=== PATIENT | female | born 1935 | race Caucasian/White ===

== ENCOUNTER 2021-01-18 01:36 | Inpatient (IN) | payer MEDICARE, BC ==
[~2021-01-18] VITALS: Ht 162.6 cm; Wt 58.7 kg
[2021-01-18] MEDS ORDERED: GABA-532 PO (02:08)
[2021-01-18] MEDS ORDERED: LOSA50TA39 PO (02:08)
[2021-01-18] MEDS ORDERED: ONDA4TAB5 PO (02:08)
[2021-01-18] MEDS ORDERED: atorvastatin PO (02:08)
[2021-01-18] MEDS ORDERED: QUET25TA PO ×2 (02:08)
[2021-01-18] MEDS ORDERED: metoprolol PO (02:08)
[2021-01-18] MEDS ORDERED: ASPI81TA31 PO (02:08)
[2021-01-18] MEDS ORDERED: POLY17PO4 PO (02:08)
[2021-01-18] MEDS ORDERED: ACET325T53 PO (02:08)
[2021-01-18] MEDS ORDERED: ALBU6.7H9 IH (02:08)
[2021-01-18] MEDS ORDERED: LEVO125T8 PO (02:08)
[2021-01-18] MEDS ORDERED: CLONIDINE HCL 0.1 MG TABLET PO ONE (02:15)
[2021-01-18 02:47] LABS: HEMATOCRIT 37.5 % (31.2-41.9); MEAN CORPUSCULAR VOLUME 91.2 fL (75.5-95.3); PLATELET COUNT (AUTO) 318 K/uL (179-408)
[2021-01-18 02:55] LABS: POTASSIUM 4.1 mmol/L (3.5-5.1)
[2021-01-18 03:02] LABS: BILIRUBIN,DIRECT 0.1 mg/dL (0.0-0.2); BILIRUBIN,TOTAL 0.2 mg/dL (0.2-1.0); TOTAL PROTEIN, SERUM 7.2 g/dL (6.4-8.2)
[2021-01-18] MEDS ORDERED: CLONIDINE HCL 0.1 MG TABLET ONE (03:04)
[2021-01-18 03:08] LABS: THYROID STIMULATING HORMONE 3.833 mIU/mL (0.358-3.740)
[2021-01-18 03:25] LABS: MAGNESIUM 1.8 mg/dL (1.8-2.4)
--- NOTE | 2021-01-18 03:38 | NUR ---
Paged Epic panel nurse practitioner adult. Waiting for Cris Hernandez LICENSED PHARMACIST to call back.
[2021-01-18] MEDS ORDERED: ONDANSETRON 4 MG/2 ML VIAL IV PRN (03:45)
[2021-01-18] MEDS ORDERED: ACETAMINOPHEN 325 MG TABLET PO PRN (03:45)
[2021-01-18] MEDS ORDERED: ENOXAPARIN SODIUM 60 MG/0.6 ML DISP.SYRIN SQ ONE ×2 (03:45→03:47)
[2021-01-18] MEDS ORDERED: MAG HYDROX/AL HYDROX/SIMETH 30 ML LIQUID UDC PO PRN ×2 (03:45→16:45)
[2021-01-18] MEDS ORDERED: NITROGLYCERIN 0.4 MG/TAB BOTTLE SL PRN (03:45)
[2021-01-18] MEDS ORDERED: ASPIRIN 81 MG TAB.CHEW PO ONE (03:45)
[2021-01-18] MEDS ORDERED: NITROGLYCERIN OINT 1 GM PACKET TP ONE ×2 (03:45→03:49)
[2021-01-18] MEDS ORDERED: DOCUSATE SODIUM 100 MG CAPSULE PO PRN (03:45)
[2021-01-18] MEDS ORDERED: ASPIRIN 81 MG TAB.CHEW ONE (03:46)
--- NOTE | 2021-01-18 03:50 | NUR ---
Dr Mata spoke to Cris Hernandez NP supervisor dimension warehouse for [facility] group, who accept patient to Tele inpatient.
--- NOTE | 2021-01-18 03:58 | NUR ---
After EDMD Dr. Mata reviewed 12 lead EKG and saw trop level of 0.46, he ordered 2 baby asprin, 60mg of lovenox SQ and 2in of nitro paste. After removing items from omnicell, pt refused medication. Dr. Mata notified regarding pt refusal of meds. He was ok with the refusal and said it was her perogative to refuse the medication.
[2021-01-18] MEDS ORDERED: ACETAMINOPHEN 325 MG TABLET-SA PATIENTS-PAIN ONLY PO PRN (04:00)
[2021-01-18 04:06] LABS: *BILIRUBIN,URIN NEGATIVE (NEGATIVE); *BLOOD, URINE NEGATIVE (NEGATIVE); *CLARITY,URINE CLEAR (CLEAR); *COLOR,URINE YELLOW (YELLOW); *KETONES,URINE NEGATIVE (NEGATIVE); *UROBILINOGEN,URINE 0.2 E.U./dl (NORMAL); LEUKOCYTE ESTERASE ,URINE TRACE (NEGATIVE); NITRITE, URINE NEGATIVE (NEGATIVE); UGLUCOSE 2+ (NEGATIVE)
[2021-01-18 04:11] LABS: BACTERIA,URINE FEW /HPF (NONE SEEN); RBC,URINE 0-3 /HPF (0-3); SQUAMOUS EPITHELIAL CELL,UR FEW /HPF (NONE SEEN)
--- NOTE | 2021-01-18 05:30 | NUR ---
Pt's bilat nastriles swabbed for covid using aseptic technique. Pt tolerated well.
--- NOTE | 2021-01-18 07:09 | NUR ---
ADMITTED AN 85 Y.0. FEMALE WITH ADMITTING DX OF CP ALERT AND VERBALLY RESPONSIVE, KNOWS WHERE SHE CAME FROM BUT DENIES ASSAULTING STAFF AND SECLUDING SELF. ROUTINE ADMISSION ASSESSMENT INITIATED, REFUSED TELEMETRY DR NEUMANN IN AND MADE AWARE. CONTINUE 1:1 SITTER AT BEDSIDE
--- NOTE | 2021-01-18 07:15 | NUR ---
Pt transported to room 306 via gurney without incident. Pt walked over to bed and stopped by the bathroom to void. Pt was dressed into tele gown, placed on monitor and in bed in pos of comfort. Pt has great color, temp and appearance. No complaints of pain, nausea, discomfort or distress of any kind.
[2021-01-18 08:15] VITALS: BP 125/45
[2021-01-18] MEDS: GABAPENTIN 100 MG CAPSULE PO SCH ×3 (08:51→16:23)
[2021-01-18] MEDS: ENOXAPARIN SODIUM 60 MG/0.6 ML DISP.SYRIN SQ SCH ×3 (08:55→20:40)
[2021-01-18] MEDS: LEVOTHYROXINE SODIUM 125 MCG TABLET PO SCH (08:57)
[2021-01-18] MEDS ORDERED: METOPROLOL SUCCINATE XL 25 MG TAB.SR.24H PO SCH (09:00)
[2021-01-18] MEDS ORDERED: LOSARTAN POTASSIUM 50 MG TABLET PO SCH (09:00)
[2021-01-18] MEDS ORDERED: ASPIRIN 81 MG TAB.CHEW PO SCH (09:00)
[2021-01-18] MEDS ORDERED: ENOXAPARIN SODIUM 40 MG/0.4 ML DISP.SYRIN SQ SCH (09:00)
--- NOTE | 2021-01-18 09:45 | NUR ---
SEEN BY DR BENITES WITH DISCHARGE ORDERS Addendum: 01/18/21 at 1256 by LUPE DELATORRE RN ERROR
--- NOTE | 2021-01-18 09:50 | NUR ---
patient refused echo cardiogram at bedside
--- NOTE | 2021-01-18 10:51 | NUR ---
DISCHARGED HOME STABLE ACCOMPANIED BY WITH O2 FOR HOME USE Addendum: 01/18/21 at 1053 by LUPE DELATORRE RN ERROR
--- NOTE | 2021-01-18 12:39 | NUR ---
DR GREENE NOTIFIED FOR PSYCH CONSULT RE: DANGER TO SELF/GRAVELY DISABLED
[2021-01-18] MEDS: QUETIAPINE FUMARATE 25 MG TABLET PO SCH ×2 (14:11→20:39)
--- NOTE | 2021-01-18 14:12 | NUR ---
SEEN BY DR LYNNE FOR PSYCH EVAL PLACED PATIENT ON 5250=14 DAY HOLD. PATIENT REMAINS CALM, TALKING MEDICATION ORDERED, CONTINUE 1:1 SITTER PER PROTOCOL
[2021-01-18] MEDS ORDERED: MAG30ORA PO (15:38)
[2021-01-18] MEDS ORDERED: ATOR40TA PO (15:38)
[2021-01-18] MEDS ORDERED: METO25TA6 PO (15:38)
[2021-01-18] MEDS ORDERED: METF-442 PO (15:38)
[2021-01-18] MEDS ORDERED: IBUP-1953 PO (15:38)
[2021-01-18] MEDS ORDERED: LORA-258 PO (15:38)
[2021-01-18] MEDS ORDERED: ALBUTEROL SULFATE 2.5 MG/3 ML NEBU NEB PRN (16:45)
[2021-01-18] MEDS ORDERED: ALBUTEROL SULFATE 8 GM HFA.AER.AD IH PRN (16:45)
[2021-01-18] MEDS ORDERED: MIRALAX 17 GM POWD.PACK PO PRN (16:45)
[2021-01-18] MEDS ORDERED: LORAZEPAM 0.5 MG TABLET PO PRN (16:45)
[2021-01-18] MEDS ORDERED: IBUPROFEN 400 MG TABLET PO PRN (16:45)
[2021-01-18] MEDS ORDERED: METOPROLOL TARTRATE 25 MG TABLET PO SCH (17:00)
[2021-01-18 17:42] VITALS: BP 131/42
[2021-01-18] MEDS ORDERED: Medication Not On Formulary EA (Metformin Hcl 1,000 MG) PO SCH (18:00)
[2021-01-18] MEDS ORDERED: METFORMIN HCL 500 MG TABLET PO SCH (18:00)
--- NOTE | 2021-01-18 18:45 | NUR ---
PATIENT AGAIN REFUSED BLOOD DRAWING MD AWARE. PATIENT BECAME AGITATED WHEN STAFF TRIED TO EXPLAIN THE IMPORTANT OF TAKING BLOOD
[2021-01-18 20:00] VITALS: BP 126/42
--- NOTE | 2021-01-18 20:45 | NUR ---
Received pt standing by window inside her room, 1:1 sitter at bedside. She is on 14-day hold started today at 1400H. No respiratory distress noted, denies pain and discomfort. Pt refused all 2100H meds, stating she doesn't need them. Explained risks and benefits, pt still refused. Will continue to monitor.
[2021-01-18] MEDS ORDERED: CEphaleXIN 500 MG CAPSULE PO SCH (21:00)
[2021-01-18] MEDS ORDERED: SIMVASTATIN 10 MG TABLET PO SCH (21:00)
[2021-01-19 04:00] VITALS: BP 136/51
[2021-01-19] MEDS: LEVOTHYROXINE SODIUM 125 MCG TABLET PO SCH (06:17)
--- NOTE | 2021-01-19 06:18 | NUR ---
Pt did not sleep at all, walks around room then goes back to lie down on bed. She is ambulatory and continent. Denies pain and discomfort at this time. Levothyroxine PO taken and tolerated well. Tried to go out of room once and wanted to use another bathroom. Pt redirected and went back to bed. Report given to MHU SELAM Guillen.
--- NOTE | 2021-01-19 07:05 | NUR ---
At 0645H, Pt transferred to MHU via wheelchair accompanied by RN and sitter. Belongings brought with patient.
== END 2021-01-19 06:45 | DRG 689 ==
LOC: ER 01:49 → TELE3 06:59 → MEDSURG3 17:36
PROVIDERS: ADMIT Hospitalist; ATTEND Hospitalist
DX: N39.0 Urinary tract infection, site not specified (principal); I21.A1 Myocardial infarction type 2; F23 Brief psychotic disorder; E03.9 Hypothyroidism, unspecified; E11.9 Type 2 diabetes mellitus without complications; E78.5 Hyperlipidemia, unspecified; F31.9 Bipolar disorder, unspecified; I10 Essential (primary) hypertension; Z20.822 Contact with and (suspected) exposure to COVID-19; J44.9 Chronic obstructive pulmonary disease, unspecified; Z91.19 Patient's noncompliance with other medical treatment and regimen; J45.909 Unspecified asthma, uncomplicated; F01.50 Vascular dementia, unspecified severity, without behavioral disturbance, psychotic disturbance, mood disturbance, and anxiety; Z79.899 Other long term (current) drug therapy
CPT/HCPCS: 36415; 70030-TC; 83735; 84443; 84481; 85025; 93005; A4663; G0378; J1650

== ENCOUNTER 2021-01-19 07:37 | Inpatient (IN) | payer MEDICARE, BC ==
[~2021-01-19] VITALS: Ht 160 cm; Wt 54.0 kg
[~2021-01-19 07:37] MED LIST: ACET325T53 PO; ALBU6.7H9 IH; ASPI81TA31 PO; ATOR40TA PO; GABA-532 PO; IBUP-1953 PO; LEVO125T8 PO; LORA-258 PO; LOSA50TA39 PO; MAG30ORA PO; METF-442 PO; METO25TA6 PO; POLY17PO4 PO; QUET25TA PO
[2021-01-19] MEDS ORDERED: ACETAMINOPHEN 325 MG TABLET PO PRN (08:45)
[2021-01-19] MEDS ORDERED: MAGNESIUM HYDROXIDE 30 ML LIQUID UDC PO PRN (08:45)
[2021-01-19] MEDS ORDERED: BLOOD SUGAR DIAGNOSTIC 1 EACH STRIP VI ONE (08:45)
[2021-01-19] MEDS ORDERED: MAG HYDROX/AL HYDROX/SIMETH 30 ML LIQUID UDC PO PRN ×2 (08:45→13:30)
[2021-01-19] MEDS ORDERED: TEMAZEPAM 7.5 MG CAPSULE PO PRN (08:45)
--- NOTE | 2021-01-19 08:48 | NUR ---
GPS: Nursing Notes: Admission Notes: Patient admitted from 3rd floor, [facility] on 5250 GD due to paranoia, disorganized, and unable to provide a self care, on face to face assessment, patient is angry and refusing to answer questions, gets easily irritable when questioned by staff, poor anger management, loud and pressured speech, refusing to eat her breakfast this morning, AWOL risk, believes that there is nothing wrong with her, denies SI/HI, denies AH/VH, A/Ox2, forgetful at times, poor historian, unable to formulate a viable plan for self care, admitting package and oriented to the unit per protocol, episodes of pushing exit doors, stating "I got to go.. I have an appointment..", redirected and reoriented during shift, uncooperative with her admission, Dr. Arenas covering for Dr. Montana and Dr. Bella were notify by the charge nurse, continue to monitor for safety, continue with treatment plan.
[2021-01-19 08:57] VITALS: BP 126/42
[2021-01-19] MEDS: ESCITALOPRAM OXALATE 10 MG TABLET PO SCH (12:10)
[2021-01-19] MEDS: QUETIAPINE FUMARATE 25 MG TABLET PO SCH ×2 (12:10→20:31)
[2021-01-19] MEDS ORDERED: ALBUTEROL SULFATE 8 GM HFA.AER.AD IH PRN (13:30)
[2021-01-19] MEDS ORDERED: MIRALAX 17 GM POWD.PACK PO PRN (13:30)
[2021-01-19] MEDS ORDERED: ACETAMINOPHEN 325 MG TABLET-SA PATIENTS-PAIN ONLY PO PRN (13:30)
[2021-01-19] MEDS ORDERED: ALBUTEROL SULFATE 2.5 MG/3 ML NEBU NEB PRN (14:00)
[2021-01-19] MEDS: GABAPENTIN 100 MG CAPSULE PO SCH ×2 (15:04→20:32)
[2021-01-19 16:10] VITALS: BP 134/50
[2021-01-19] MEDS: METOPROLOL TARTRATE 25 MG TABLET PO SCH (17:31)
[2021-01-19] MEDS: METFORMIN HCL 500 MG TABLET PO SCH (17:31)
[2021-01-19] MEDS: CEphaleXIN 500 MG CAPSULE PO SCH (17:31)
[2021-01-19] MEDS: IBUPROFEN 400 MG TABLET PO PRN ×2 (18:54→23:26)
[2021-01-19 20:09] VITALS: BP 138/48
[2021-01-19] MEDS: ATORVASTATIN 40 MG TABLET PO SCH (20:31)
[2021-01-19] MEDS: CLONAZEPAM 0.5 MG TABLET PO PRN (21:45)
[2021-01-20] MEDS: LEVOTHYROXINE SODIUM 125 MCG TABLET PO SCH (06:13)
[2021-01-20] MEDS: GABAPENTIN 100 MG CAPSULE PO SCH ×3 (06:13→21:26)
[2021-01-20 07:59] VITALS: BP 128/52
[2021-01-20] MEDS: CEphaleXIN 500 MG CAPSULE PO SCH ×2 (08:27→17:00)
[2021-01-20] MEDS: METFORMIN HCL 500 MG TABLET PO SCH ×2 (08:27→17:45)
[2021-01-20] MEDS: LOSARTAN POTASSIUM 50 MG TABLET PO SCH (08:28)
[2021-01-20] MEDS: ASPIRIN 81 MG TAB.CHEW PO SCH (08:28)
[2021-01-20] MEDS: METOPROLOL TARTRATE 25 MG TABLET PO SCH ×2 (08:28→17:00)
[2021-01-20] MEDS: QUETIAPINE FUMARATE 25 MG TABLET PO SCH ×2 (08:28→20:49)
[2021-01-20] MEDS: ESCITALOPRAM OXALATE 10 MG TABLET PO SCH (08:28)
[2021-01-20] MEDS: GLUCERNA SHAKE 237 ML CAN PO SCH ×3 (11:00→17:45)
[2021-01-20] MEDS: CLONAZEPAM 0.5 MG TABLET PO PRN ×2 (12:31→21:26)
[2021-01-20] MEDS ORDERED: INSULIN REGULAR, HUMAN 300 UNIT/3 ML VIAL SQ PRN (13:30)
[2021-01-20] MEDS ORDERED: DEXTROSE 50% 50 ML DISP.SYRIN IV PRN (13:30)
[2021-01-20] MEDS: BLOOD SUGAR DIAGNOSTIC 1 EACH STRIP VI SCH ×2 (16:30→20:17)
[2021-01-20 16:44] VITALS: BP 124/44
--- NOTE | 2021-01-20 17:54 | NUR ---
GPS: Nursing Notes: Thought Disorder: Patient is awake and responding to her name, poor anger management, A/Ox1 at this time, sundown behavior loud and angry affect, shouting "I WANT MY BREAKFAST...", redirected and reoriented during shift, but resistant with nursing care, AWOL risk, pushing the exits door, believes that she is leaving today, shouting "READ THE FUCKEN ORDER... IT SAYS, I AM LEAVING TODAY..", pacing the unit and pushing the exit door, standing by the exit door, loud and pressured speech, refusing her PM medications, paranoid behavior, refusing to eat, impaired judgment, poor insight, unable to formulate a viable plan for self care, continue to monitor for safety, continue with treatment plan.
[2021-01-20 20:10] VITALS: BP 114/50
[2021-01-20] MEDS: ATORVASTATIN 40 MG TABLET PO SCH (20:49)
--- NOTE | 2021-01-20 21:27 | NUR ---
GPS: Pt.is angry,easily agitated when being re-directed and when offered to take her bedtime meds. Poor insight to present situation. Refuses to listen to re-direction from staff. Argumentative and insisting that she does not need to stay here anymore. AWOL precautions observed. Klonopin 0.5 mg PO offered but pt.threw it inside the trash. Will continue to monitor for further escalation of behavior.
[2021-01-21] MEDS: GABAPENTIN 100 MG CAPSULE PO SCH ×4 (06:00→21:56)
[2021-01-21] MEDS: LEVOTHYROXINE SODIUM 125 MCG TABLET PO SCH ×2 (06:04→06:17)
--- NOTE | 2021-01-21 06:04 | NUR ---
GPS: Pt.slept 5.30 last night. Refused Neurontin and Synthroid meds.at this time. Paranoid,suspicious,and easily irritable when approached and when being persuaded to take her meds. Poor insight to present situation. Will continue to monitor.
[2021-01-21] MEDS: BLOOD SUGAR DIAGNOSTIC 1 EACH STRIP VI SCH ×4 (06:18→20:17)
--- NOTE | 2021-01-21 06:23 | NUR ---
GPS: Charge nurse offered Synthroid and Neurontin med.to pt. again and she decided to take them.
[2021-01-21 07:45] VITALS: BP 131/42
[2021-01-21] MEDS: GLUCERNA SHAKE 237 ML CAN PO SCH ×2 (08:00→17:00)
[2021-01-21] MEDS: METFORMIN HCL 500 MG TABLET PO SCH ×2 (08:00→17:03)
[2021-01-21] MEDS: METOPROLOL TARTRATE 25 MG TABLET PO SCH ×2 (09:00→17:00)
[2021-01-21] MEDS: QUETIAPINE FUMARATE 25 MG TABLET PO SCH ×2 (09:00→20:17)
[2021-01-21] MEDS: CEphaleXIN 500 MG CAPSULE PO SCH ×2 (09:00→17:00)
[2021-01-21] MEDS: LOSARTAN POTASSIUM 50 MG TABLET PO SCH (09:00)
[2021-01-21] MEDS: ESCITALOPRAM OXALATE 10 MG TABLET PO SCH (09:00)
[2021-01-21] MEDS: ASPIRIN 81 MG TAB.CHEW PO SCH (09:00)
[2021-01-21 15:49] VITALS: BP 136/57
--- NOTE | 2021-01-21 18:52 | NUR ---
GPS: Nursing Notes: Noncompliance with her Medications: Patient is awake and responding to her name, refusing her medications, shouting "They are not my pills..", paranoid behavior, believes that we are not feeding her, shouting "I want my bagel with cheese.." at dinner time, redirected and reoriented during shift, poor anger management, resistant with nursing care, loud and pressured speech, depressed mood and angry affect, unable to formulate a viable plan for self care, A/Ox1 at this time, believes that she is leaving today, AWOL risk, continue to monitor for safety, continue with treatment plan.
[2021-01-21] MEDS: ATORVASTATIN 40 MG TABLET PO SCH (20:17)
[2021-01-21 20:55] VITALS: BP 134/50
--- NOTE | 2021-01-22 00:05 | NUR ---
GPS: Pt.still awake at this time. Angry,irritable,paranoid and suspicious. Easily agitated when being re-directed. Continues to refuse meds.offered. States she wants pills that makes her younger not older. Confused and disorganized. Poor impulse control. Safe environment provided. Will continue to monitor.
[2021-01-22] MEDS: GABAPENTIN 100 MG CAPSULE PO SCH ×3 (06:00→21:03)
[2021-01-22] MEDS: BLOOD SUGAR DIAGNOSTIC 1 EACH STRIP VI SCH ×4 (06:14→20:44)
[2021-01-22] MEDS: LEVOTHYROXINE SODIUM 125 MCG TABLET PO SCH (06:14)
[2021-01-22] MEDS: METFORMIN HCL 500 MG TABLET PO SCH ×2 (08:00→17:14)
[2021-01-22] MEDS: GLUCERNA SHAKE 237 ML CAN PO SCH ×2 (08:00→16:56)
[2021-01-22 08:04] VITALS: BP 155/57
[2021-01-22] MEDS: LOSARTAN POTASSIUM 50 MG TABLET PO SCH (08:44)
[2021-01-22] MEDS: METOPROLOL TARTRATE 25 MG TABLET PO SCH ×2 (08:44→16:55)
[2021-01-22] MEDS: CEphaleXIN 500 MG CAPSULE PO SCH ×2 (08:44→16:55)
[2021-01-22] MEDS: ASPIRIN 81 MG TAB.CHEW PO SCH (08:44)
[2021-01-22] MEDS: ESCITALOPRAM OXALATE 10 MG TABLET PO SCH (08:44)
[2021-01-22] MEDS: QUETIAPINE FUMARATE 25 MG TABLET PO SCH ×2 (08:44→20:44)
--- NOTE | 2021-01-22 09:44 | NUR ---
NANCY Initial Discharge Plan: Patient currently resides at [address] [address] ([phone]) Assisted Living. Patient's DPOA Gunjan Price ([phone]) is involved in the patient's treatment plan. Patient may require a short-term SNF prior to returning to her assisted living. NANCY will continue to work with patient, family, and MD to ensure a safe and proper discharge plan.
--- NOTE | 2021-01-22 09:44 | NUR ---
NANCY DPOA Contact: NANCY spoke with patient's DPOA Gunjan Price ([phone]) and discussed treatment and discharge plan. NANCY discussed that patient may require a short-term SNF prior to returning to her assisted living. Gunjan is agreeable with this plan. Gunjan will send this NANCY DPOA documents.
--- NOTE | 2021-01-22 09:45 | NUR ---
Firearms Report: Vault Cashier completed and submitted a [employer] firearms report for 5150 grave disability certifications. A copy of report has been placed in patient chart.
--- NOTE | 2021-01-22 11:24 | NUR ---
GPS: Nursing Notes: Severe Paranoia/Agitation: Patient is awake and barricading the exit door by laying down on the floor and with her legs pushing the exit door down, so preventing staff to leave the unit, paranoid behavior, loud and angry affect, resistant with nursing care, restless behavior, when removed from the exit door with security, patient started to shout, trying to scratch staff, and tried to bite staff on the arm. Severe agitation by constantly banging on the table and shouting, verbal abusive toward staff, "SON OF A BITCH... I AM LEAVING.. I AM GOING TO TAKE YOU TO INTERMEDIATE..", threatening staff, clenching her fist toward staff, redirected and reoriented to reality, but unable to follow directions, continue to refuse her medications PO, overly disruptive by constantly shouting, continue to monitor for safety, Dr. Rubén cortez by charge nurse, continue with treatment plan.
[2021-01-22] MEDS ORDERED: OLANZAPINE 10 MG VIAL IM ONE (11:30)
[2021-01-22] MEDS ORDERED: LORAZEPAM 2 MG/1 ML VIAL IM ONE (11:30)
--- NOTE | 2021-01-22 11:31 | NUR ---
GPS: Nursing Notes: Chemical Restraint: Patient is awake and responding to her name, paranoid behavior with severe agitation, trying to bite at staff, trying to scratch staff when assisting her, barricading the exit door by laying down on the floor and pushing the exit door with her legs, when redirected, patient started to shout, threatening staff, trying to scratch staff and bite staff on the arm, banging on the table, poor anger management, setting limits, but unable to follow directions due to severe paranoia and agitation, continue to refuse her PO medications, Dr. Montana called and ordered: Zyprexa 5mg IM and Ativan 1mg IM STAT for severe agitation, IM medications given at this time, R=18, continue to monitor for safety, continue with treatment plan.
--- NOTE | 2021-01-22 11:32 | NUR ---
NANCY Facility Contact: NANCY received a call from Cayla CORTES from [facility] ([phone]) and discussed patient's current treatment and discharge plan. Cayla stated they would like patient to be stable before returning possibly at a short-term SNF.
--- NOTE | 2021-01-22 12:01 | NUR ---
GPS: Nursing Notes: Reassessment of Chemical Restraint: Patient is awake and responding to her name, angry affect, but following directions, resistant with nursing care, IM medications were helpful, R=18, continue to monitor for safety, continue with treatment plan.
[2021-01-22 16:00] VITALS: BP 126/40
[2021-01-22] MEDS ORDERED: DEXTROSE 50% 50 ML DISP.SYRIN IV PRN (19:00)
[2021-01-22 20:06] VITALS: BP 136/52
[2021-01-22] MEDS: ATORVASTATIN 40 MG TABLET PO SCH (20:44)
[2021-01-23] MEDS: GABAPENTIN 100 MG CAPSULE PO SCH ×3 (06:00→21:29)
[2021-01-23] MEDS: BLOOD SUGAR DIAGNOSTIC 1 EACH STRIP VI SCH ×4 (06:36→21:01)
[2021-01-23] MEDS: LEVOTHYROXINE SODIUM 125 MCG TABLET PO SCH (06:36)
[2021-01-23] MEDS: METFORMIN HCL 500 MG TABLET PO SCH ×2 (08:00→18:00)
[2021-01-23] MEDS: GLUCERNA SHAKE 237 ML CAN PO SCH ×2 (08:00→17:27)
[2021-01-23] MEDS: LOSARTAN POTASSIUM 50 MG TABLET PO SCH (09:00)
[2021-01-23] MEDS: QUETIAPINE FUMARATE 25 MG TABLET PO SCH ×2 (09:00→21:00)
[2021-01-23] MEDS: METOPROLOL TARTRATE 25 MG TABLET PO SCH ×2 (09:00→17:00)
[2021-01-23] MEDS: ESCITALOPRAM OXALATE 10 MG TABLET PO SCH (09:00)
[2021-01-23] MEDS: CEphaleXIN 500 MG CAPSULE PO SCH (09:00)
[2021-01-23] MEDS: ASPIRIN 81 MG TAB.CHEW PO SCH (09:00)
--- NOTE | 2021-01-23 10:09 | NUR ---
NANCY PC Hearing: Patient had 5250 probable cause hearing today and it was upheld for grave disability.
--- NOTE | 2021-01-23 10:20 | NUR ---
GPS: PT SEEN CLOSING THE DOOR, BANGING THE HEAD ON THE WALL, HITTING HER HEAD WITH HER HANDS, YELLING, AGITATED AND REFUSING MEDS. PT BROUGHT TO FRED-CHAIR FOR SAFETY. STILL YELLING AND HITTING HER HEAD WITH HANDS. REFUSING MEDS TOO. CALLED DR LYNNE, LEFT VOICEMAIL AND TEXT. WILL WAIT FOR FURTHER ORDER.
--- NOTE | 2021-01-23 10:41 | NUR ---
GPS: DR GREENE ORDERED ATIVAN 1MG 0.5ML IM ONE TIME AND ZYPREXA 5MG 0.G VIAL ONE TIME. WAITING FOR ORDER TO BE VERIFIED. PT NOTED PINCHING BOTH HER LEGS.
[2021-01-23] MEDS ORDERED: LORAZEPAM 2 MG/1 ML VIAL IM ONE ×2 (10:45→11:00)
[2021-01-23] MEDS ORDERED: OLANZAPINE 10 MG VIAL IM ONE (10:45)
[2021-01-23] MEDS ORDERED: diphenhydrAMINE 50 MG/1 ML VIAL IM ONE (11:00)
[2021-01-23] MEDS ORDERED: HALOPERIDOL LACTATE 5 MG/1 ML VIAL IM ONE (11:00)
--- NOTE | 2021-01-23 11:19 | NUR ---
GPS: IM INJ ADMINISTERED TO PT, ATIVAN, HALDOL AND BENADRYL ON LEFT AND RIGHT DORSAL GLUTEAL AREA. PT TOLERATED WELL. PT DID GET AGITATED WHILE ADMINISTERING. POT ON FRED- CHAIR.
--- NOTE | 2021-01-23 11:32 | NUR ---
NANCY SNF Referral: NANCY faxed patient's referral packet to [facility] (F:[phone]) attention to Leonardo. Addendum: 01/28/21 at 1022 by KYMBERLY AHUJA Patient is accepted for placement.
[2021-01-23 16:00] VITALS: BP 124/40
--- NOTE | 2021-01-23 18:37 | NUR ---
GPS: PT ON FRED CHAIR FOR SAFETY. OFFERED TOILETING AND AMBULATED WITH ASSISTANCE TO THE BATHROOM. PT UNSTEADY, WITH MILD AGITATION NOTED. NON-COMLIANT WITH MEDICATIONS. PT DENIES ANY PAIN OR DISCOMFORT. WILL MONITOR PT.
[2021-01-23 20:00] VITALS: BP 111/41
[2021-01-23] MEDS: ATORVASTATIN 40 MG TABLET PO SCH (21:29)
[2021-01-24] MEDS: INSULIN REGULAR, HUMAN 300 UNIT/3 ML VIAL SQ PRN ×3 (02:00→09:13)
--- NOTE | 2021-01-24 02:13 | NUR ---
Received to care, up in jessica chair for safety. Gait remains unsteady. Assisted with ambulation. Selective with medications. Refused Seroquel, and PRN sleeping medication. Observed to be talking to self, at times. Agreed to have her blood sugar checked (299, at bedtime), but she refused to be given insulin coverage. She was assisted to the bathroom, and bed, around 2300. she has slept on and off. went to the bathroom, a few times. As of now. she appears to be asleep. Bed alarm armed, for safety. will continue to monitor closely.
[2021-01-24] MEDS: GABAPENTIN 100 MG CAPSULE PO SCH ×3 (06:00→21:22)
--- NOTE | 2021-01-24 06:00 | NUR ---
Slept 5.0 hours, total.
[2021-01-24] MEDS: LEVOTHYROXINE SODIUM 125 MCG TABLET PO SCH (06:41)
[2021-01-24] MEDS: BLOOD SUGAR DIAGNOSTIC 1 EACH STRIP VI SCH ×4 (06:41→21:00)
--- NOTE | 2021-01-24 06:42 | NUR ---
refused her AM medications, including her blood sugar check. She was reminded that last nights reading was 299, but she stated that was normal, even when normal ranges were explained to her.
[2021-01-24 07:30] VITALS: BP 153/71
[2021-01-24] MEDS: GLUCERNA SHAKE 237 ML CAN PO SCH ×2 (09:03→17:00)
[2021-01-24] MEDS: METFORMIN HCL 500 MG TABLET PO SCH ×2 (09:05→17:04)
[2021-01-24] MEDS: ASPIRIN 81 MG TAB.CHEW PO SCH (09:05)
[2021-01-24] MEDS: QUETIAPINE FUMARATE 25 MG TABLET PO SCH ×2 (09:06→21:00)
[2021-01-24] MEDS: METOPROLOL TARTRATE 25 MG TABLET PO SCH ×2 (09:06→17:00)
[2021-01-24] MEDS: ESCITALOPRAM OXALATE 10 MG TABLET PO SCH (09:06)
[2021-01-24] MEDS: LOSARTAN POTASSIUM 50 MG TABLET PO SCH (09:06)
--- NOTE | 2021-01-24 12:05 | NUR ---
GPS: PT SPOKE WITH [employer] EMPLOYEE. PT REFUSED TAKING PSYCHIATRIC MEDICATIONS. STATED SHE DOES NOT LIKE TO TAKE IT BECAUSE SHE KNOWS THE DR THAT DOES NOT HAVE A LICENSE PRESCRIBING THE MEDICATION. 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
--- NOTE | 2021-01-24 13:00 | NUR ---
GPS: RECEIVED TELEPHONE ORDER FROM DR LYNNE REGARDING PT REISE PETITION GRANTED FOR MEDICATION HALDOL 2.5MG 2 TIMES A DAY NEEDED INTRAMUSCULAR INJECTION IF PT REFUSES ORAL SEROQUEL MEDICATION. PT MADE AWARE OF THE PETITION AND PT REFUSES AND AGITATED.
[2021-01-24 16:00] VITALS: BP 144/53
[2021-01-24 20:18] VITALS: BP 138/63
[2021-01-24] MEDS: ATORVASTATIN 10 MG TABLET PO SCH (21:00)
[2021-01-24] MEDS: HALOPERIDOL LACTATE 5 MG/1 ML VIAL IM PRN (21:25)
--- NOTE | 2021-01-25 02:17 | NUR ---
Received to care, isolative in room, verbally hostile and suspicious, when approached. Refused all medications, including Seroquel, and blood sugar check. IM Haldol given to left deltoid, per NUNO arce. She eventually calmed down, and went to sleep. as of now, she continues to sleep. no distress noted. will continue to monitor closely.
[2021-01-25] MEDS: GABAPENTIN 100 MG CAPSULE PO SCH ×3 (05:52→21:00)
--- NOTE | 2021-01-25 05:53 | NUR ---
Has been at the unit doors, the last few hours, testing the doors, and attempting to leave, when staff exit. She states her son is on the other side of the door, and is waiting for her. She refuses to be redirected, or oriented to reality, or her situation.
[2021-01-25] MEDS: LEVOTHYROXINE SODIUM 125 MCG TABLET PO SCH (06:09)
[2021-01-25] MEDS: BLOOD SUGAR DIAGNOSTIC 1 EACH STRIP VI SCH ×4 (06:36→20:44)
--- NOTE | 2021-01-25 06:36 | NUR ---
refused her AM medications, including her blood sugar check. Remains paranoid, and suspicious.
[2021-01-25 07:30] VITALS: BP 126/61
[2021-01-25] MEDS: GLUCERNA SHAKE 237 ML CAN PO SCH ×2 (08:00→18:22)
[2021-01-25] MEDS: METFORMIN HCL 500 MG TABLET PO SCH ×2 (09:31→18:53)
[2021-01-25] MEDS: ASPIRIN 81 MG TAB.CHEW PO SCH (09:31)
[2021-01-25] MEDS: LOSARTAN POTASSIUM 50 MG TABLET PO SCH (09:32)
[2021-01-25] MEDS: METOPROLOL TARTRATE 25 MG TABLET PO SCH ×2 (09:32→18:22)
[2021-01-25] MEDS: ESCITALOPRAM OXALATE 10 MG TABLET PO SCH (09:33)
[2021-01-25] MEDS: glipiZIDE 5 MG TABLET PO SCH ×2 (09:35→18:21)
[2021-01-25] MEDS: QUETIAPINE FUMARATE 25 MG TABLET PO SCH ×2 (09:36→21:00)
[2021-01-25] MEDS: INSULIN REGULAR, HUMAN 300 UNIT/3 ML VIAL SQ PRN ×2 (12:02→12:32)
[2021-01-25 20:00] VITALS: BP 172/76
[2021-01-25] MEDS: ATORVASTATIN 10 MG TABLET PO SCH (20:59)
--- NOTE | 2021-01-26 01:43 | NUR ---
Received to care lying in bed, isolative, and guarded, but pleasant upon approach. No psychotic symptoms noted. Compliant with all medications, except for insulin coverage. Bedtime snack was given. She went to sleep around 2230. As of now, she continues to sleep. no distress noted.
--- NOTE | 2021-01-26 06:00 | NUR ---
slept 7.25 hours.
[2021-01-26] MEDS: GABAPENTIN 100 MG CAPSULE PO SCH ×3 (06:07→22:03)
[2021-01-26] MEDS: LEVOTHYROXINE SODIUM 125 MCG TABLET PO SCH (06:07)
[2021-01-26] MEDS: BLOOD SUGAR DIAGNOSTIC 1 EACH STRIP VI SCH ×4 (06:30→21:01)
--- NOTE | 2021-01-26 06:56 | NUR ---
SYNCOPAL EPISODE NOTE; witnessed syncopal fall to the ground at 0610, with a momentary loss of consciousness. b/p was 63/33, blood sugar 161. she was transferred to the bed, with feet elevated. At 0625, VITAL SIGNS WERE 108/48 hr 55. She was responsive, and EKG was ordered. AT 0635, V/S 144/48, hr 53, and EKG people arrived. [facility] medical group was called. 0647, EKG showed sinus bradycardia, with a rate of 54. awaiting call back from MD, Pt remains responsive.
[2021-01-26] MEDS: GLUCERNA SHAKE 237 ML CAN PO SCH ×2 (08:00→17:03)
[2021-01-26 08:18] VITALS: BP 122/46
[2021-01-26] MEDS: METFORMIN HCL 500 MG TABLET PO SCH ×2 (08:59→17:03)
[2021-01-26] MEDS: ESCITALOPRAM OXALATE 10 MG TABLET PO SCH (08:59)
[2021-01-26] MEDS: glipiZIDE 5 MG TABLET PO SCH ×2 (08:59→16:39)
[2021-01-26] MEDS: ASPIRIN 81 MG TAB.CHEW PO SCH (08:59)
[2021-01-26] MEDS: QUETIAPINE FUMARATE 25 MG TABLET PO SCH ×2 (08:59→21:00)
[2021-01-26 09:00] LABS: HEMATOCRIT 38.6 % (31.2-41.9); MEAN CORPUSCULAR VOLUME 91.1 fL (75.5-95.3); PLATELET COUNT (AUTO) 301 K/uL (179-408)
[2021-01-26] MEDS: LOSARTAN POTASSIUM 50 MG TABLET PO SCH (09:00)
[2021-01-26] MEDS: METOPROLOL TARTRATE 25 MG TABLET PO SCH ×2 (09:00→16:40)
[2021-01-26 09:14] LABS: THYROID STIMULATING HORMONE 3.251 mIU/mL (0.358-3.740)
[2021-01-26 09:35] LABS: BILIRUBIN,TOTAL 0.5 mg/dL (0.2-1.0); PHOSPHOROUS 3.7 mg/dL (2.5-4.9); POTASSIUM 4.7 mmol/L (3.5-5.1); TOTAL PROTEIN, SERUM 7.3 g/dL (6.4-8.2)
[2021-01-26] MEDS: INSULIN REGULAR, HUMAN 300 UNIT/3 ML VIAL SQ PRN ×2 (11:53→17:34)
--- NOTE | 2021-01-26 12:33 | NUR ---
GPS: ACCUCHECK DONE WITH 198MG/DL. PT WITH SLIDING SCALE OF HUMALIN R 3 UNITS BUT PT REFUSED, PER PT "IT'S OKAY, IT'S NOT HIGH", EXPLAINED THE RISK AND BENIFITS.
[2021-01-26 16:08] VITALS: BP 120/48
--- NOTE | 2021-01-26 18:41 | NUR ---
GPS: PT ACCUCHECK AT 1638 IS 145MG/DL. PT REFUSED 2UNIT HUMALIN R. NO SYNCOPAL EPISODE ON THIS SHIFT. COOPERATIVE WITH CARE AND MEDS COMPLIANT. NO AGITATION NOTED.
[2021-01-26 20:00] VITALS: BP 109/56
[2021-01-26] MEDS: ATORVASTATIN 10 MG TABLET PO SCH (21:01)
--- NOTE | 2021-01-26 22:30 | NUR ---
Received patient in her room sitting in her bed;. she is noted awake a/o x 2. she is noted easily irritable. preoccupied with her medications. mood is low affect is labile. patient was given po fluids and snacks. she is reassured for her safety. safety and fall precaution are in place. V/S continue on the low side. last reading was 102/51 and pulse was 61. Seroquel 25mg PO QHS was held d/t low B/P. patient also refused insulin sliding scale for blood glucose of 151 QHS. multiple redirections given yet ineffective. will continue to monitor closely.
[2021-01-27] MEDS: BLOOD SUGAR DIAGNOSTIC 1 EACH STRIP VI SCH ×4 (06:32→20:15)
[2021-01-27] MEDS: GABAPENTIN 100 MG CAPSULE PO SCH ×3 (06:37→21:09)
[2021-01-27] MEDS: LEVOTHYROXINE SODIUM 125 MCG TABLET PO SCH (06:37)
--- NOTE | 2021-01-27 06:59 | NUR ---
Patient slept for approx 8 hrs through the night. she became agitated and demanding her losartan. "I want my losartan right now, now!!!" she was told that her losartan is not due till 9am. she was able to calm down later on and took al her QAM meds. will continue to monitor.
[2021-01-27 07:30] VITALS: BP 113/61
[2021-01-27] MEDS: ASPIRIN 81 MG TAB.CHEW PO SCH (08:40)
[2021-01-27] MEDS: METFORMIN HCL 500 MG TABLET PO SCH ×2 (08:40→17:06)
[2021-01-27] MEDS: glipiZIDE 5 MG TABLET PO SCH ×2 (08:40→16:30)
[2021-01-27] MEDS: METOPROLOL TARTRATE 25 MG TABLET PO SCH ×2 (08:40→17:00)
[2021-01-27] MEDS: ESCITALOPRAM OXALATE 10 MG TABLET PO SCH (08:41)
[2021-01-27] MEDS: QUETIAPINE FUMARATE 25 MG TABLET PO SCH ×2 (08:41→21:00)
[2021-01-27] MEDS: LOSARTAN POTASSIUM 50 MG TABLET PO SCH (08:41)
[2021-01-27] MEDS: GLUCERNA SHAKE 237 ML CAN PO SCH ×2 (08:43→16:55)
--- NOTE | 2021-01-27 14:54 | NUR ---
GPS: PT GIVEN THE GABAPENTIN BUT PT THREW THE MEDICATION WITH THE MED CUP. PT AGITATED STATING "YOU DID NOT GIVE ME THE LOSARTAN".
--- NOTE | 2021-01-27 17:15 | NUR ---
GPS: ACCUCHECK DONE AND TOLERATED BY PT. MEDS WAS REFUSED BY PT, PT STATED "" I DONT NEED MEDICATION" WHAT I NEED IS LOSARTAN. RE-EDUCATE PT THAT LOSARTAN IS ONLY GIVEN IN THE MORNING. PT EXPLAINED THE RISK AND BENIFITS. STILL PT REFUSED.
[2021-01-27 20:00] VITALS: BP 94/46
[2021-01-27] MEDS ORDERED: ATORVASTATIN 10 MG TABLET ONE (21:15)
[2021-01-27] MEDS: ATORVASTATIN 10 MG TABLET PO SCH (21:22)
--- NOTE | 2021-01-27 22:08 | NUR ---
Received patient in her room sitting in her bed;. she is noted awake a/o x 2. she is noted calm and pleasant upon approached. she is noted disoriented in time, she thinks that it is in the morning and she is waiting for breakfast. she required redirections and reassurance. mood is blunted affect is irritable. continue fixed on Losartan medication. she continue with low B/p OF 98/52MMHG. SEROQUEL QHS HAS NOT BEEN GIVEN AT THIS TIME D/T LOW B/P/ will continue to reassess B/P. patient was also given po fluids and snacks. she is reassured for her safety. safety and fall precaution are in place. will continue to monitor.
--- NOTE | 2021-01-27 23:10 | NUR ---
patient's B/P continue on the low side. . Seroquel 25mg PO PRN was held d/t decreased b/p. Will endorse to morning shift for possible withhold on her morning hypertensin medication (Losartan and metoprolol). will continue to monitor.
[2021-01-28] MEDS: GABAPENTIN 100 MG CAPSULE PO SCH ×4 (06:00→21:18)
[2021-01-28] MEDS: BLOOD SUGAR DIAGNOSTIC 1 EACH STRIP VI SCH ×4 (06:30→20:39)
[2021-01-28] MEDS: LEVOTHYROXINE SODIUM 125 MCG TABLET PO SCH ×2 (07:00→07:33)
[2021-01-28] MEDS: LOSARTAN POTASSIUM 50 MG TABLET PO SCH (08:04)
[2021-01-28] MEDS: METOPROLOL TARTRATE 25 MG TABLET PO SCH ×2 (08:05→16:55)
[2021-01-28] MEDS: METFORMIN HCL 500 MG TABLET PO SCH ×2 (08:06→16:56)
[2021-01-28] MEDS: QUETIAPINE FUMARATE 25 MG TABLET PO SCH ×3 (08:06→20:35)
[2021-01-28] MEDS: ASPIRIN 81 MG TAB.CHEW PO SCH (08:06)
[2021-01-28] MEDS: ESCITALOPRAM OXALATE 10 MG TABLET PO SCH (08:06)
[2021-01-28] MEDS: GLUCERNA SHAKE 237 ML CAN PO SCH ×2 (08:07→16:57)
[2021-01-28] MEDS: glipiZIDE 5 MG TABLET PO SCH ×2 (08:14→16:55)
[2021-01-28 08:37] VITALS: BP 102/49
[2021-01-28] MEDS: HALOPERIDOL LACTATE 5 MG/1 ML VIAL IM PRN (09:04)
--- NOTE | 2021-01-28 09:05 | NUR ---
patient is agitated labile refused all AM medication , Haldol 2.5 mg IM given as ordered.
--- NOTE | 2021-01-28 10:21 | NUR ---
NANCY DPOA Contact: NANCY spoke with patient's DPOA Gunjanmartha Price ([phone]) and discussed updated treatment and discharge plan. NANCY informed that patient is accepted at [facility] for placement and Gunjan is agreeable with this plan.
[2021-01-28] MEDS ORDERED: HALOPERIDOL DECANOATE 50 MG/1 ML AMPUL IM ONE (14:00)
--- NOTE | 2021-01-28 14:45 | NUR ---
Haldol decanoate Im given as ordered. patient tolerated well.
[2021-01-28 15:40] VITALS: BP 121/43
[2021-01-28] MEDS: INSULIN REGULAR, HUMAN 300 UNIT/3 ML VIAL SQ PRN (16:53)
[2021-01-28 20:04] VITALS: BP 123/52
--- NOTE | 2021-01-28 20:20 | NUR ---
Received patient in her room, pleasant upon approach. Semi fair insight and semi fair judgement. Patient will remain in a psych facility for further evaluation and treatment.
[2021-01-28] MEDS: ATORVASTATIN 10 MG TABLET PO SCH (20:35)
--- NOTE | 2021-01-28 20:48 | NUR ---
Blood sugar was checked. Blood sugar was 232. Patient refused medication. Explained the importance to receive medication for high blood sugar but patient consistently refuses. 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
[2021-01-28] MEDS ORDERED: IBUPROFEN 400 MG TABLET PO PRN (21:45)
[2021-01-29] MEDS: GABAPENTIN 100 MG CAPSULE PO SCH ×3 (06:20→20:39)
[2021-01-29] MEDS: LEVOTHYROXINE SODIUM 125 MCG TABLET PO SCH (06:55)
[2021-01-29 07:30] VITALS: BP 129/48
[2021-01-29] MEDS: glipiZIDE 5 MG TABLET PO SCH ×2 (07:30→16:30)
[2021-01-29] MEDS: ASPIRIN 81 MG TAB.CHEW PO SCH (08:52)
[2021-01-29] MEDS: FAMOTIDINE 20 MG TABLET PO SCH (08:53)
[2021-01-29] MEDS: LOSARTAN POTASSIUM 50 MG TABLET PO SCH (08:53)
[2021-01-29] MEDS: ESCITALOPRAM OXALATE 10 MG TABLET PO SCH (08:53)
[2021-01-29] MEDS: QUETIAPINE FUMARATE 25 MG TABLET PO SCH ×2 (08:53→20:19)
[2021-01-29] MEDS: METFORMIN HCL 500 MG TABLET PO SCH ×2 (08:54→17:44)
[2021-01-29] MEDS: GLUCERNA SHAKE 237 ML CAN PO SCH ×2 (08:54→17:54)
[2021-01-29] MEDS: METOPROLOL TARTRATE 25 MG TABLET PO SCH ×2 (08:55→16:27)
[2021-01-29 15:09] VITALS: BP 100/48
--- NOTE | 2021-01-29 17:55 | NUR ---
patient is alert and oriented. she is isolative, withdrawn, guarded, and angry. patient is easily irritable and labile with staff. patient educated about appropriate ways to communicate needs to staff and educated about impulse control, but refusing to participate in education. patient denies suicidal and homicidal ideation, denies hallucinations. patient is able to ambulate and perform self care independently. able to tolerate food and fluids. patient encouraged to participate in unit groups and therapeutic milieu.
[2021-01-29 20:06] VITALS: BP 100/50
[2021-01-29] MEDS: ATORVASTATIN 10 MG TABLET PO SCH (20:18)
[2021-01-30] MEDS: GABAPENTIN 100 MG CAPSULE PO SCH ×3 (06:14→23:59)
[2021-01-30] MEDS: LEVOTHYROXINE SODIUM 125 MCG TABLET PO SCH (06:15)
[2021-01-30 07:30] VITALS: BP 96/58
[2021-01-30] MEDS: ESCITALOPRAM OXALATE 10 MG TABLET PO SCH (08:28)
[2021-01-30] MEDS: METFORMIN HCL 500 MG TABLET PO SCH ×2 (08:28→17:09)
[2021-01-30] MEDS: glipiZIDE 5 MG TABLET PO SCH ×2 (08:28→16:30)
[2021-01-30] MEDS: ASPIRIN 81 MG TAB.CHEW PO SCH (08:28)
[2021-01-30] MEDS: FAMOTIDINE 20 MG TABLET PO SCH (08:30)
[2021-01-30] MEDS: METOPROLOL TARTRATE 25 MG TABLET PO SCH ×2 (08:30→17:00)
[2021-01-30] MEDS: QUETIAPINE FUMARATE 25 MG TABLET PO SCH ×2 (08:31→20:11)
[2021-01-30] MEDS: LOSARTAN POTASSIUM 50 MG TABLET PO SCH (08:33)
[2021-01-30] MEDS: GLUCERNA SHAKE 237 ML CAN PO SCH ×2 (08:33→17:00)
--- NOTE | 2021-01-30 15:43 | NUR ---
received patient in room ambulating and self care. patient is withdrawn isolative and quadrad. patient with poor impulse control .subspecies with medication. still compliant with all po medication. encourage patient to Verbalizer her feeling and needs. vital sign stable denies any pain or discomfort.
[2021-01-30 16:00] VITALS: BP 108/40
[2021-01-30 19:57] VITALS: BP 125/53
[2021-01-30] MEDS: ATORVASTATIN 10 MG TABLET PO SCH (20:11)
[2021-01-31] MEDS: LEVOTHYROXINE SODIUM 125 MCG TABLET PO SCH (06:39)
[2021-01-31] MEDS: GABAPENTIN 100 MG CAPSULE PO SCH ×3 (06:39→22:14)
[2021-01-31 07:30] VITALS: BP 125/56
[2021-01-31] MEDS: METFORMIN HCL 500 MG TABLET PO SCH ×3 (08:00→17:08)
[2021-01-31] MEDS: FAMOTIDINE 20 MG TABLET PO SCH (09:02)
[2021-01-31] MEDS: QUETIAPINE FUMARATE 25 MG TABLET PO SCH ×2 (09:02→20:39)
[2021-01-31] MEDS: ASPIRIN 81 MG TAB.CHEW PO SCH (09:02)
[2021-01-31] MEDS: LOSARTAN POTASSIUM 50 MG TABLET PO SCH (09:03)
[2021-01-31] MEDS: METOPROLOL TARTRATE 25 MG TABLET PO SCH ×2 (09:03→17:09)
[2021-01-31] MEDS: ESCITALOPRAM OXALATE 10 MG TABLET PO SCH (09:03)
[2021-01-31] MEDS: GLUCERNA SHAKE 237 ML CAN PO SCH ×2 (09:04→17:09)
[2021-01-31] MEDS: glipiZIDE 5 MG TABLET PO SCH ×2 (09:06→17:08)
--- NOTE | 2021-01-31 14:18 | NUR ---
Gps/Molder Operator- Ambulates around, flat affect, guarded, prompted to take routine meds. able to talked to her cousin from out of town. Hesitancy to take routine meds, able to comply after encouragement.
[2021-01-31 16:24] VITALS: BP 110/56
[2021-01-31 20:07] VITALS: BP 136/54
[2021-01-31] MEDS: ATORVASTATIN 10 MG TABLET PO SCH (20:39)
[2021-01-31] MEDS: CLONAZEPAM 0.5 MG TABLET PO PRN (22:14)
[2021-02-01] MEDS: GABAPENTIN 100 MG CAPSULE PO SCH ×2 (06:00→14:00)
[2021-02-01 07:30] VITALS: BP 151/65
[2021-02-01] MEDS: LEVOTHYROXINE SODIUM 125 MCG TABLET PO SCH (08:24)
[2021-02-01] MEDS: glipiZIDE 5 MG TABLET PO SCH (08:24)
[2021-02-01] MEDS: METFORMIN HCL 500 MG TABLET PO SCH (08:25)
[2021-02-01] MEDS: GLUCERNA SHAKE 237 ML CAN PO SCH (08:25)
--- NOTE | 2021-02-01 08:43 | NUR ---
NANCY Discharge Note: Pt will be discharged to [facility] [place] [address] ([phone]) via ambulance transportation at 1PM. NANCY spoke with [facility] who confirmed they can accept patient back and are ready to accept patient today. Patient is alert and oriented x2. Pt is unable to plan for self-care at this time, however, is willing to accept care at [facility]. Patient denies suicidal or homicidal ideation. Patient presents with appropriate mood and congruent affect. Patient will follow-up at the facility with Dr. Montana Psychiatrist and Dr. Bella Behavioral Medical Director. Patients DPDIMA Gunjan Price ([phone]) is aware and agreeable with discharge plan.
[2021-02-01] MEDS: ASPIRIN 81 MG TAB.CHEW PO SCH (09:03)
[2021-02-01] MEDS: QUETIAPINE FUMARATE 25 MG TABLET PO SCH (09:04)
[2021-02-01] MEDS: ESCITALOPRAM OXALATE 10 MG TABLET PO SCH (09:04)
[2021-02-01] MEDS: LOSARTAN POTASSIUM 50 MG TABLET PO SCH (09:04)
[2021-02-01] MEDS: FAMOTIDINE 20 MG TABLET PO SCH (09:05)
[2021-02-01] MEDS: METOPROLOL TARTRATE 25 MG TABLET PO SCH (09:05)
--- NOTE | 2021-02-01 09:11 | NUR ---
Gps/Vice President Fixed Income- Hesistancy to take routine am meds. reviewed with patient, tends to be selective, able to take after prompting and encouragement. Discharged planning in progress, was informed of her discharge plan today. Dr Andrews was in to see patient informed of dc. plan this pm.
--- NOTE | 2021-02-01 12:03 | NUR ---
Gps/Heel Scourer- Report called to Marco Antonio Molina @ [facility] , informed of picked up time of 1300 by [facility].
--- NOTE | 2021-02-01 13:15 | NUR ---
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 Patient was hysterical , calling staff names, and adamantly refusing to get into the gurney . Labile angry mood , screaming out loud , staff haaving difficulty redirecting patient, does not want to listen to any explanation. Charge Nurse Rachael , called Dr. Acharya , informed of the situation, orders received. Ativan 1 mg po tried to administered, patient refused. Tries to use all approached necessary to get patient to cooperate but no results.
--- NOTE | 2021-02-01 13:30 | NUR ---
Gps/Gamewell Operator- Patient has yellow necklace with cross, as well as cell phone , and robe w/ belt, per patient those are not hers but will take it
[2021-02-01] MEDS ORDERED: LORAZEPAM 1 MG TABLET PO ONE (13:45)
[2021-02-01] MEDS ORDERED: LORAZEPAM 2 MG/1 ML VIAL IM ONE (14:30)
--- NOTE | 2021-02-01 15:08 | NUR ---
Gps/Conventional Mortgage Underwriter- Called [facility], spoked to Marco Antonio DOSS, was informed discharged planned for 1300 was cancelled , re schedules for 1600 this pm, was informed patient was given ativan 1 mg IM to right deltoid, increasing agitation, labile, angry yelling at the staff refusing to get into the gurney
--- NOTE | 2021-02-01 15:56 | NUR ---
Gps/Administrative Support Associate- Patient sleeping soundly at this time, in no sign of any discomfort, or any distress
[2021-02-01 16:00] VITALS: BP 138/52
--- NOTE | 2021-02-01 16:25 | NUR ---
Gp[s/Online Advertising Analyst- [facility] here to transport patient . to [facility], patient now awake , calm, in no sign of any distress.Discharge via ambulance, cell phone, yellow necklace with cross , beige robe with belt, red shirt. with patient.
--- NOTE | 2021-02-01 17:13 | NUR ---
Gps/Tereso Truong (DPOA) called checking on how patient's discharged went this pm, and how was her mentation , adequate informations provide to DPOA.
--- NOTE | 2021-02-01 18:46 | NUR ---
Gps/Band Sawing Machine Operator- Unable to waste ativan 1 mg po since patient already removed from the system , called Belkis (Pharmacist) came in , ativan was handed to her .
== END 2021-02-01 16:32 | DRG 885 ==
LOC: GPS 08:10
PROVIDERS: ADMIT Psychiatry & Neurology Psychiatry; ATTEND Student in an Organized Health Care Education/Training Program
DX: F29 Unspecified psychosis not due to a substance or known physiological condition (principal); E11.65 Type 2 diabetes mellitus with hyperglycemia; N39.0 Urinary tract infection, site not specified; F39 Unspecified mood [affective] disorder; E78.5 Hyperlipidemia, unspecified; E03.9 Hypothyroidism, unspecified; J44.9 Chronic obstructive pulmonary disease, unspecified; Z79.84 Long term (current) use of oral hypoglycemic drugs; I11.9 Hypertensive heart disease without heart failure; F31.9 Bipolar disorder, unspecified; F41.9 Anxiety disorder, unspecified; Z87.891 Personal history of nicotine dependence; Z73.6 Limitation of activities due to disability; I25.2 Old myocardial infarction; Z91.19 Patient's noncompliance with other medical treatment and regimen; Z20.822 Contact with and (suspected) exposure to COVID-19
CPT/HCPCS: 36415; 71045; 83735; 84100; 84443; 85025; 93005; 97161; J1200; J1630; J1631; J1815; J2060; J2358